=== PATIENT | female | born 1995 | race African-American/Black ===

== ENCOUNTER → 2018-01-30 | Outpatient (CLI) | payer BC, MEDICAID ==
[~2018-01-30] MED LIST: PREN-96 PO
[2018-01-30 11:31] LABS: Basophils # (auto) 0 uL; Basophils % (auto) 0.3 % (0.0-2.0); Eosinophils # (auto) 0 uL; Eosinophils % (auto) 0.3 % (0.0-7.0); Hemoglobin 12.8 g/dL (12.2-16.2); Lymphocytes # (auto) 1.3 uL; Mean Corpuscular Hemoglobin 29.9 pg (28.0-32.0); Mean Corpuscular Hgb Conc. 33.5 g/dL (32.0-36.0); Mean Corpuscular Volume 89.3 fL (80.0-100.0); Monocytes # (auto) 0.2 uL; Monocytes % (auto) 3.4 % (0.0-12.0); Neutrophils # (auto) 5.2 uL; Nucleated Red Blood Cells % 0.1 %; Platelet Count (auto) 281 10^3/uL (140-450); Red Blood Cells 4.26 10^6/uL (4.0-5.20); Red Cell Distribution Width 14.3 % (11.8-14.3); White Blood Cell 6.7 10^3/uL (4.4-10.8)
[2018-01-30 12:41] LABS: Alcohol, Urine < 3.0 mg/dL (0-5); Amphetamine Screen, Urine NEGATIVE (NEGATIVE); Barbiturate Scree,Urine NEGATIVE (NEGATIVE); Benzodiazephine Screen, Urine NEGATIVE (NEGATIVE); Cannabinoid Screen, Urine NEGATIVE (NEGATIVE); Cocaine Screen, Urine NEGATIVE (NEGATIVE); Opiate Scree,Urine NEGATIVE (NEGATIVE); Phencyclidine Screen, Urine NEGATIVE (NEGATIVE)
[2018-01-31 05:06] LABS: RPR Non Reactive (Non Reactive)
== END | disposition home or self-care (01) ==
LOC: LAB 10:36
PROVIDERS: ATTEND Obstetrics & Gynecology
DX: Z34.81 Encounter for supervision of other normal pregnancy, first trimester (principal); Z3A.01 Less than 8 weeks gestation of pregnancy; Z20.2 Contact with and (suspected) exposure to infections with a predominantly sexual mode of transmission
CPT/HCPCS: 36415; 80307; 83036; 84144; 84702; 85025; 86592; 86703; 86762; 86850; 86900; 86901; 87086; 87088; 87186; 87340

== ENCOUNTER → 2018-04-14 | Outpatient (CLI) | payer BC, MEDICAID ==
[2018-04-14 07:54] LABS: Basophils # (auto) 0 uL; Basophils % (auto) 0.2 % (0.0-2.0); Eosinophils # (auto) 0 uL; Eosinophils % (auto) 0.4 % (0.0-7.0); Hematocrit 34.7 % (36.0-46.0); Hemoglobin 11.6 g/dL (12.2-16.2); Lymphocytes # (auto) 1.1 uL; Lymphocytes % (auto) 16.1 % (10.0-50.0); Mean Corpuscular Hemoglobin 29.9 pg (28.0-32.0); Mean Corpuscular Hgb Conc. 33.3 g/dL (32.0-36.0); Mean Corpuscular Volume 89.8 fL (80.0-100.0); Monocytes # (auto) 0.3 uL; Monocytes % (auto) 5.1 % (0.0-12.0); Neutrophils # (auto) 5.3 uL; Neutrophils % (auto) 78.2 % (37.0-80.0); Platelet Count (auto) 288 10^3/uL (140-450); Red Blood Cells 3.86 10^6/uL (4.0-5.20); Red Cell Distribution Width 12.9 % (11.8-14.3); White Blood Cell 6.7 10^3/uL (4.4-10.8)
[2018-04-15 06:06] LABS: RPR Non Reactive (Non Reactive)
== END | disposition home or self-care (01) ==
LOC: LAB 07:17
PROVIDERS: ATTEND Obstetrics & Gynecology
DX: O99.810 Abnormal glucose complicating pregnancy (principal); Z3A.15 15 weeks gestation of pregnancy
CPT/HCPCS: 36415; 82951; 83036; 85025; 86592

== ENCOUNTER → 2018-06-17 | Outpatient (CLI) | payer BC, MEDICAID ==
[2018-06-17 16:20] LABS: Basophils # (auto) 0 uL; Basophils % (auto) 0.2 % (0.0-2.0); Eosinophils # (auto) 0 uL; Eosinophils % (auto) 0.4 % (0.0-7.0); Hematocrit 34.9 % (36.0-46.0); Hemoglobin 11.5 g/dL (12.2-16.2); Lymphocytes # (auto) 1.4 uL; Lymphocytes % (auto) 17.6 % (10.0-50.0); Mean Corpuscular Hgb Conc. 32.9 g/dL (32.0-36.0); Mean Corpuscular Volume 88.2 fL (80.0-100.0); Monocytes # (auto) 0.5 uL; Monocytes % (auto) 6.4 % (0.0-12.0); Neutrophils # (auto) 5.9 uL; Neutrophils % (auto) 75.4 % (37.0-80.0); Nucleated Red Blood Cells % 0.1 %; Platelet Count (auto) 254 10^3/uL (140-450); Red Blood Cells 3.95 10^6/uL (4.0-5.20); Red Cell Distribution Width 13.8 % (11.8-14.3); White Blood Cell 7.8 10^3/uL (4.4-10.8)
[2018-06-18 06:09] LABS: RPR Non Reactive (Non Reactive)
== END | disposition home or self-care (01) ==
LOC: LAB 15:53
PROVIDERS: ATTEND Obstetrics & Gynecology
DX: O23.593 Infection of other part of genital tract in pregnancy, third trimester (principal); Z3A.36 36 weeks gestation of pregnancy
CPT/HCPCS: 36415; 85025; 86592; 87081

== ENCOUNTER 2018-06-27 13:55 | Observation (INO) | payer BC, MEDICAID | END 2018-06-27 15:10 | disposition home or self-care (01) | DRG 833 | LOC: LDRP 13:55 | PROVIDERS: ADMIT Obstetrics & Gynecology; ATTEND Obstetrics & Gynecology | DX: O62.9 Abnormality of forces of labor, unspecified (principal); O26.893 Other specified pregnancy related conditions, third trimester; R11.0 Nausea; Z3A.37 37 weeks gestation of pregnancy | CPT/HCPCS: 59025; 81002; G0378 ==

== ENCOUNTER 2018-06-29 20:50 | Observation (INO) | payer BC, MEDICAID | END 2018-06-29 21:55 | disposition home or self-care (01) | DRG 833 | LOC: LDRP 20:50 | PROVIDERS: ADMIT Obstetrics & Gynecology; ATTEND Obstetrics & Gynecology | DX: O47.9 False labor, unspecified (principal); O26.893 Other specified pregnancy related conditions, third trimester; N89.8 Other specified noninflammatory disorders of vagina; Z3A.37 37 weeks gestation of pregnancy | CPT/HCPCS: 59025; 81002; G0378 ==

== ENCOUNTER 2018-07-01 08:25 | Inpatient (IN) | payer BC, MEDICAID ==
[~2018-07-01] VITALS: Ht 165.1 cm; Wt 97.5 kg
[2018-07-01 10:08] LABS: Basophils # (auto) 0 uL; Basophils % (auto) 0.3 % (0.0-2.0); Eosinophils # (auto) 0 uL; Eosinophils % (auto) 0.3 % (0.0-7.0); Hematocrit 32.9 % (36.0-46.0); Hemoglobin 10.8 g/dL (12.2-16.2); Lymphocytes # (auto) 1.3 uL; Mean Corpuscular Hemoglobin 28.8 pg (28.0-32.0); Mean Corpuscular Hgb Conc. 32.8 g/dL (32.0-36.0); Mean Corpuscular Volume 87.8 fL (80.0-100.0); Monocytes # (auto) 0.5 uL; Monocytes % (auto) 6.5 % (0.0-12.0); Neutrophils # (auto) 5.9 uL; Neutrophils % (auto) 75.9 % (37.0-80.0); Nucleated Red Blood Cells % 0.2 %; Platelet Count (auto) 222 10^3/uL (140-450); Red Blood Cells 3.75 10^6/uL (4.0-5.20); White Blood Cell 7.7 10^3/uL (4.4-10.8)
[2018-07-01 10:27] LABS: Albumin 2.2 g/dL (3.4-5.0); Anion Gap 4 (5-15); Blood Urea Nitrogen 7 mg/dL (7-18); Calcium 8.4 mg/dL (8.5-10.1); Carbon Dioxide 24 mmol/L (21-32); Chloride 107 mmol/L (98-107); Glucose 78 mg/dL (74-106); Potassium 4.3 mmol/L (3.5-5.1); Sodium 135 mmol/L (136-145)
[2018-07-01 10:31] LABS: Alanine Aminotransferase 16 U/L (13-56); Alkaline Phosphatase 159 U/L (45-117); Aspartate Aminotransferase 21 U/L (15-37); BUN/Creatinine Ratio 10.9; Bilirubin, Total 0.3 mg/dL (0.2-1.0); GFR African American > 60 mL/min; GFR Non-African American > 60 mL/min; Total Protein 6.4 g/dL (6.4-8.2); Uric Acid 4.1 mg/dL (2.6-6.0)
[2018-07-01 11:25] LABS: Amphetamine Screen, Urine NEGATIVE (NEGATIVE); Barbiturate Scree,Urine NEGATIVE (NEGATIVE); Benzodiazephine Screen, Urine NEGATIVE (NEGATIVE); Cannabinoid Screen, Urine NEGATIVE (NEGATIVE); Cocaine Screen, Urine NEGATIVE (NEGATIVE); Phencyclidine Screen, Urine NEGATIVE (NEGATIVE)
[2018-07-01 11:27] LABS: Alcohol, Urine < 3.0 mg/dL (0-5); Opiate Scree,Urine NEGATIVE (NEGATIVE)
[2018-07-01 11:44] LABS: Urine Bacteria NONE SEEN /hpf (None Seen); Urine Blood Negative /uL (Negative); Urine Hyaline Cast FEW /lpf (0 - 2); Urine Specific Gravity 1.006 (1.001-1.035); Urine WBC 10 /hpf (0 - 5)
[2018-07-01] MEDS ORDERED: LACTATED RINGER'S 1,000 ML IV SCH (12:55)
[2018-07-01] MEDS ORDERED: LACT. RINGERS/OXYTOCIN 20UNITS 1,000 ML IV SCH ×2 (12:55)
[2018-07-01] MEDS ORDERED: PHISODERM TOP SOLN 240ML BTL TOP PRN (13:00)
[2018-07-01] MEDS ORDERED: TERBUTALINE SULFATE 1 MG/ML 1ML VIAL SC ONE (13:00)
[2018-07-01] MEDS ORDERED: WITCH HAZEL-GLYCERIN PAD TOP PRN (13:00)
[2018-07-01] MEDS ORDERED: NALBUPHINE HCL 10 MG/1ml INJECTION IV PRN (13:00)
[2018-07-01] MEDS ORDERED: DERMOPLAST 60ML BOTTLE TOP PRN (13:00)
[2018-07-01 14:09] LABS: INR 0.86 (0.9-1.15); Partial Thromboplastin Time 28.9 sec (23.78-33.04); Prothrombin Time 9.3 sec (9.27-12.13)
[2018-07-01] MEDS ORDERED: PROMETHAZINE HCL 25 MG/ML 1ML ONE (15:18)
[2018-07-01] MEDS ORDERED: PROMETHAZINE HCL 25 MG/ML 1ML IV PRN (15:45)
[2018-07-01] MEDS ORDERED: LIDOCAINE 2%HCL (LOCAL ANESTH.) INJ 20ML MDV ONE (16:00)
[2018-07-01] MEDS ORDERED: ACETAMINOPHEN 325 MG TAB PO PRN (16:30)
[2018-07-01] MEDS ORDERED: IBUPROFEN 600 MG TAB PO PRN (16:30)
--- NOTE | 2018-07-01 18:30 | NUR ---
Ambulation: Patient OOB with standby assistance by RN. Patient ambulated to bathroom with steady gait. Patient able to void without difficulty. Pericare teaching provided with returned demonstration by patient. Clean gown provided and bed linen changed. Patient ambulated back to bed with steady gait and no distress noted.
[2018-07-01 23:00] VITALS: BP 108/58
[2018-07-02 03:16] VITALS: BP 120/63
[2018-07-02 05:05] LABS: RPR Non Reactive (Non Reactive)
[2018-07-02 07:00] VITALS: BP 118/71
[2018-07-02 11:04] VITALS: BP 123/87
[2018-07-02 15:27] VITALS: BP 114/68
--- NOTE | 2018-07-02 17:27 | NUR ---
Discharge: Discharge instructions given to mother of baby as ordered. Copies of and hearing screening, along with vaccination record given to mother. Mother encouraged to follow up with Director Of Industrial Relations of choice and to give envelope with infants information to varnishing machine operator at 1st office visit. All questions and concerns addressed. Mother of baby verbalized understanding and agreed to comply. Mother of baby encouraged to prepare for departure and notify RN ready to leave room for ID band removal/verification and car seat check.
--- NOTE | 2018-07-02 17:28 | NUR ---
Discharge: Discharge instructions given as ordered. Pt encouraged to follow up with INSECT CONTROL INSPECTOR as instructed. All questions and concerns addressed. Patient verbalized understanding. Medication reconciliation completed and copy given to patient. All required/requested vaccines given and copies of vaccinations given to patient. Patient encouraged to prepare to depart unit.
--- NOTE | 2018-07-02 17:35 | NUR ---
Discharge: Patient taken to vehicle via wheelchair with all personal belongings, accompanied by staff and family member. No distress noted at time of departure, no adverse changes in status since initial assessment.
== END 2018-07-02 17:35 | disposition home or self-care (01) | DRG 807 ==
LOC: LDRP 08:25 → OBSVTOIN 12:00
PROVIDERS: ADMIT Obstetrics & Gynecology; ATTEND Obstetrics & Gynecology
PROC: 10E0XZZ Delivery of Products of Conception, External Approach (ICD-10-PCS; principal; 2018-07-01)
PROC: 0HQ9XZZ Repair Perineum Skin, External Approach (ICD-10-PCS; 2018-07-01)
PROC: 10907ZC Drainage of Amniotic Fluid, Therapeutic from Products of Conception, Via Natural or Artificial Opening (ICD-10-PCS; 2018-07-01)
PROC: 0UQMXZZ Repair Vulva, External Approach (ICD-10-PCS; 2018-07-01)
DX: O70.0 First degree perineal laceration during delivery (principal); Z37.0 Single live birth; O71.82 Other specified trauma to perineum and vulva; Z3A.39 39 weeks gestation of pregnancy
CPT/HCPCS: 36415; 59025; 59409; 76818; 80053; 80307; 81001; 81002; 84550; 85025; 85610; 85730; 86592; 86850; 86900; 86901; 96365; 96366; G0378; J2590

== ENCOUNTER 2022-11-07 20:38 | Emergency (ER) | payer BC, MEDICAID ==
[~2022-11-07] VITALS: Ht 165.1 cm; Wt 74.1 kg
[2022-11-07] MEDS ORDERED: CLINDAMYCIN 900MG IV 50 ML IV ONE (21:00)
[2022-11-07] MEDS ORDERED: ACETAMINOPHEN 325 MG TAB PO ONE (21:00)
[2022-11-07] MEDS ORDERED: DexAMETHasone SOD PHOS 10MG/1ML VIAL INJ IV ONE (21:00)
[2022-11-07] MEDS ORDERED: ONDANSETRON HCL 4 MG/2 ML VIAL IV ONE (21:00)
[2022-11-07] MEDS ORDERED: LIDOCAINE VISCOUS 2% 15ML UD PO ONE (21:00)
[2022-11-07] MEDS ORDERED: KETOROLAC TROMETH 30 MG/ML 1ML VIAL IV ONE (21:00)
[2022-11-07] MEDS ORDERED: SODIUM CHLORIDE 0.9% 1,000 ML IV ONE (21:00)
[2022-11-07] MEDS ORDERED: CLINDAMYCIN HCL 150 MG CAP PO ONE (21:15)
[2022-11-07] MEDS ORDERED: PIPERACILLIN-TAZOB 3.375GM 100 ML IV ONE (21:15)
[2022-11-07] MEDS ORDERED: PRED20TA2 PO (21:29)
[2022-11-07] MEDS ORDERED: CLIN300C70 PO (21:29)
[2022-11-07] MEDS ORDERED: IBU600T PO (21:29)
[2022-11-07] MEDS ORDERED: LIDO2SOL18 MT (21:29)
[2022-11-07 23:30] VITALS: BP 126/81
== END 2022-11-07 23:33 | disposition home or self-care (01) ==
LOC: ER 20:44
DX: J03.90 Acute tonsillitis, unspecified (principal)
CPT/HCPCS: 96365; 96375; 99284; J1100; J1885; J2405; J2543; J7030

== ENCOUNTER 2023-11-30 15:02 | Emergency (ER) | payer MEDICAID ==
[~2023-11-30] VITALS: Ht 165.1 cm; Wt 79.4 kg
[~2023-11-30 15:02] MED LIST changes: +CLIN1CAP70 PO; +IBU600T PO; +LIDO2SOL18 MT; +PRED20TA2 PO
[2023-11-30 16:14] VITALS: BP 150/106; PULSE 111; RESP 16; TEMP 98.8; O2SAT 98
[2023-11-30] MEDS ORDERED: CLIN1CAP70 PO (16:22)
[2023-11-30] MEDS ORDERED: MUPI2OIN2 EX (16:22)
[2023-11-30] MEDS: DexAMETHasone SOD PHOS 10MG/1ML VIAL INJ IM ONE (16:46)
[2023-11-30] MEDS: CLINDAMYCIN HCL 150 MG CAP PO ONE (16:46)
[2023-11-30] MEDS: diphenhdrAMINE HCL 25 MG CAP PO ONE (16:46)
[2023-11-30] MEDS: ONDANSETRON ODT 4 MG TAB PO ONE (16:46)
[2023-11-30] MEDS: TETANUS-DIPTH-ACEL PERTUSSIS 0.5ML SYR Tdap IM ONE (16:47)
== END 2023-11-30 16:58 | disposition home or self-care (01) ==
LOC: ER 15:02
DX: S50.861A Insect bite (nonvenomous) of right forearm, initial encounter (principal); S90.861A Insect bite (nonvenomous), right foot, initial encounter; L03.113 Cellulitis of right upper limb; L03.115 Cellulitis of right lower limb; L08.89 Other specified local infections of the skin and subcutaneous tissue; R03.0 Elevated blood-pressure reading, without diagnosis of hypertension; Z79.899 Other long term (current) drug therapy; W57.XXXA Bitten or stung by nonvenomous insect and other nonvenomous arthropods, initial encounter; Y93.89 Activity, other specified; Y92.59 Other trade areas as the place of occurrence of the external cause; Y99.8 Other external cause status
CPT/HCPCS: 90471; 90715; 96372; 99284; J1100; Q0162

== ENCOUNTER 2024-05-03 13:50 | Emergency (ER) | payer BC, MEDICAID ==
[~2024-05-03] VITALS: Ht 165.1 cm; Wt 81.4 kg
[~2024-05-03 13:50] MED LIST changes: +MUPI2OIN2 EX
--- NOTE | 2024-05-03 16:31 | ED.PDOC ---
Psychiatric HPI Comments 28-year-old female with a history of bipolar disorder who admits she is nonadherent to her Zoloft presents for thoughts of hurting herself. Reports she blackout yesterday while she was drinking and sustained an abrasion to the left palm. Requesting help Denies benzodiazepines Denies thyroid disorders Denies HI/AH Chief Complaint: Suicidal Time Seen by MD: 15:53 Reviewed Notes: Nurses Notes, Medications, Allergies Information Source: Patient Mode of Arrival: Ambulatory Past Medical History PAST MEDICAL HISTORY: Denies Surgical History: Denies all surgeries PROGRAMMING ENGINEER History: No Pertinent PROGRAMMING ENGINEER History Family History Family History: Reviewed,noncontributory to illness Social History Smoker: Non-Smoker Alcohol: Rarely Drugs: Denies Drug Use All Other Systems: Reviewed and Negative (Per HPI) Physical Exam General Appearance: No Apparent Distress, Normal HEENT: Normal ENT Inspection, Pharynx Normal, TMs Normal Neck: Full Range of Motion, Non-Tender, Normal, Normal Inspection Respiratory: Chest Non-Tender, Lungs Clear, No Accessory Muscle Use, No Resp iratory Distress, Normal Breath Sounds Cardiovascular: No Edema, No JVD, No Murmur, No Gallop, Normal Peripheral Pulses, Regular Rate/Rhythm Breast Exam: Deferred Gastrointestinal: No Organomegaly, Non Tender, No Pulsatile Mass, Normal Bowel Sounds, Soft Genitalia: Deferred Pelvic: Deferred Rectal: Deferred Extremities: No calf tenderness, Normal capillary refill, Normal inspection, Normal range of motion, Non-tender, No pedal edema Musculoskeletal : Apperance: Normal Neurologic: Alert, account auditor II-XII nml as Tested, No Motor Deficits, Normal Affect, Normal Mood, No Sensory Deficits Cerebellar Function: Normal Reflexes: Normal Skin: Dry, Normal Color, Warm Lymphatic: No Adenopathy Was a procedure done? Was a procedure done?: No Psych Differential Dx Psych. Differential Dx: Anxiety, Bipolar Disorder X-Ray, Labs, Meds, VS Vital Signs Date Time Temp Pulse Resp B/P (MAP) Pulse Ox O2 Delivery O2 Flow Rate FiO2 05/03/24 14:06 98.0 133 18 151/92 (111) 99 X-Ray, Labs, Meds, VS Comment Tele psych consulted patient will be placed in observation. Patient will be endorsed to Timo Fiore Time of 1ST Reevaluation: 16:30 Reevaluation 1ST: Improved Patient Education/Counseling: Diagnosis, Treatment Family Education/Counseling: Diagnosis, Treatment Departure 1 Departure Time of Disposition: 16:30 Impression: Primary Impression: Suicidal ideation Disposition: 09 ADMITTED INPATIENT Condition: Guarded Critical Care Note Critical Care Time?: No Stability Stability form required: No Heart Score Heart Score: Heart Score Response (Comments) Value History N/A 0 EKG N/A 0 Age N/A 0 Risk Factors N/A 0 Troponin N/A 0 Total 0 BRIAN MCBRIDE NP May 03, 2024 16:31
[2024-05-03 16:35] VITALS: PULSE 135; RESP 16; O2SAT 97
[2024-05-03 17:04] LABS: Basophils # (auto) 0 10 ^3/uL (0-0.2); Basophils % (auto) 0.4 % (0.0-2.0); Eosinophils # (auto) 0 10 ^3/uL (0-0.8); Eosinophils % (auto) 0.3 % (0.0-7.0); Hematocrit 43.1 % (36.0-46.0); Hemoglobin 14.5 g/dL (12.2-16.2); Lymphocytes % (auto) 20.2 % (10.0-50.0); Mean Corpuscular Hemoglobin 30.5 pg (28.0-32.0); Mean Corpuscular Hgb Conc. 33.7 g/dL (32.0-36.0); Mean Corpuscular Volume 90.7 fL (80.0-100.0); Monocytes # (auto) 0.5 10 ^3/uL (0-1.3); Monocytes % (auto) 4.9 % (0.0-12.0); Neutrophils # (auto) 7.2 10 ^3/uL (1.6-8.6); Neutrophils % (auto) 74.2 % (37.0-80.0); Platelet Count (auto) 391 10^3/uL (140-450); Red Blood Cells 4.75 10^6/uL (4.0-5.20); Red Cell Distribution Width 13.9 % (11.8-14.3); White Blood Cell 9.6 10^3/uL (4.4-10.8)
[2024-05-03 17:13] LABS: Chloride 107 mmol/L (98-107); Potassium 4.3 mmol/L (3.5-5.1); Sodium 141 mmol/L (136-145)
[2024-05-03 17:14] LABS: Anion Gap 8 (5-15); Carbon Dioxide 26 mmol/L (20-31)
[2024-05-03 17:15] LABS: Calcium 9.7 mg/dL (8.7-10.4)
[2024-05-03 17:19] LABS: Blood Urea Nitrogen 8 mg/dL (9-23); Glucose 90 mg/dL (74-106)
[2024-05-03 17:20] LABS: Amphetamine Screen, Urine Neg (NEGATIVE); Barbiturate Scree,Urine Neg (NEGATIVE); Benzodiazephine Screen, Urine Neg (NEGATIVE); Cannabinoid Screen, Urine Pos (NEGATIVE); Cocaine Screen, Urine Neg (NEGATIVE); Opiate Scree,Urine Neg (NEGATIVE); Phencyclidine Screen, Urine Neg (NEGATIVE)
--- NOTE | 2024-05-03 19:45 | ED.PDOC ---
History of Present Illness Chief Complaint: Suicidal Allergies: Coded Allergies: NO KNOWN ALLERGIES (Unverified , 02/26/15) Home Meds Active Scripts Mupirocin (Pseudomonas Fluores (Mupirocin) 2 % Oin, 1 APPLIC EX TID, #15 GM Prov:JESSICA MELTON Q SERVICE LOSS CONTROL CONSULTANT 11/30/23 Clindamycin Hcl (Clindamycin Hcl) 300 Mg Cap, 1 CAP PO QID for 10 Days, #40 CAP Prov:JESSICA MELTON Q SERVICE LOSS CONTROL CONSULTANT 11/30/23 Lidocaine Hcl (Lidocaine Viscous) 2 % Miriam, 15 ML MT Q8HR, #100 ML as Needed for sore throat Prov:JESSICA MELTON Q SERVICE LOSS CONTROL CONSULTANT 11/07/22 Ibuprofen Micronized (MOTRIN TABLET) 600 Mg Tb, 1 TAB PO TID PRN, #20 TAB start tomorrow with food Prov:JESSICA MELTON Q SERVICE LOSS CONTROL CONSULTANT 11/07/22 Prednisone (Prednisone) 20 Mg Tab, 20 MG PO BID for 6 Days, #14 MG start tomorrow with food Prov:JESSICA MELTON Q SERVICE LOSS CONTROL CONSULTANT 11/07/22 Clindamycin Hcl (Clindamycin Hcl) 300 Mg Cap, 1 CAP PO TID for 10 Days, #21 CAP Prov:JESSICA MELTON Q SERVICE LOSS CONTROL CONSULTANT 11/07/22 Reported Medications Vit W/ Ferrous Fumara ( One Daily) Daily Tab, 1 TAB PO DAILY 02/26/15 Mode of Arrival: Ambulatory Past Medical History PAST MEDICAL HISTORY: Denies Surgical History: Denies all surgeries MATERIAL WORKER History: No Pertinent MATERIAL WORKER History Family History Family History: Reviewed,noncontributory to illness Social History Smoker: Non-Smoker Alcohol: Rarely Drugs: Denies Drug Use X-Ray, Labs, Meds, VS Vital Signs Date Time Temp Pulse Resp B/P (MAP) Pulse Ox O2 Delivery O2 Flow Rate FiO2 05/03/24 16:35 98.0 135 16 160/108 (125) 97 98.0 05/03/24 16:35 135 16 97 Room Air* 0 21 05/03/24 14:06 98.0 133 18 151/92 (111) 99 Lab Test 05/03/24 16:44 05/03/24 16:40 Range/Units Urine Test Negative Negative Urine Opiates Screen Neg NEGATIVE Urine Fentanyl Screen Neg NEGATIVE Urine Barbiturates Screen Neg NEGATIVE Urine Phencyclidine Screen Neg NEGATIVE Urine Amphetamines Screen Neg NEGATIVE Urine Benzodiazepines Screen Neg NEGATIVE Urine Cocaine Screen Neg NEGATIVE Urine Cannabinoids Screen Pos NEGATIVE White Blood Count 9.6 4.4-10.8 10^3/uL Red Blood Count 4.75 4.0-5.20 10^6/uL Hemoglobin 14.5 12.2-16.2 g/dL Hematocrit 43.1 36.0-46.0 % Mean Corpuscular Volume 90.7 80.0-100.0 fL Mean Corpuscular Hemoglobin 30.5 28.0-32.0 pg Mean Corpuscular Hemoglobin Concent 33.7 32.0-36.0 g/dL Red Cell Distribution Width 13.9 11.8-14.3 % Platelet Count 391 140-450 10^3/uL Mean Platelet Volume 7.4 6.9-10.8 fL Neutrophils (%) (Auto) 74.2 37.0-80.0 % Lymphocytes (%) (Auto) 20.2 10.0-50.0 % Monocytes (%) (Auto) 4.9 0.0-12.0 % Eosinophils (%) (Auto) 0.3 0.0-7.0 % Basophils (%) (Auto) 0.4 0.0-2.0 % Neutrophils # (Auto) 7.2 1.6-8.6 10 ^3/uL Lymphocytes # (Auto) 2.0 0.4-5.4 10 ^3/uL Monocytes # (Auto) 0.5 0-1.3 10 ^3/uL Eosinophils # (Auto) 0 0-0.8 10 ^3/uL Basophils # (Auto) 0 0-0.2 10 ^3/uL Nucleated Red Blood Cells 0.0 % Sodium Level 141 136-145 mmol/L Potassium Level 4.3 3.5-5.1 mmol/L Chloride Level 107 98-107 mmol/L Carbon Dioxide Level 26 20-31 mmol/L Anion Gap 8 5-15 Blood Urea Nitrogen 8 L 9-23 mg/dL Creatinine 1.00 0.550-1.02 mg/dL Glomerular Filtration Rate Calc 78 >90 mL/min BUN/Creatinine Ratio 8.0 L 10.0-20.0 Serum Glucose 90 74-106 mg/dL Calcium Level 9.7 8.7-10.4 mg/dL patient medically cleared Time of 1ST Reevaluation: 16:30 Reevaluation 1ST: Improved Departure 1 Departure Time of Disposition: 16:30 Impression: Primary Impression: Suicidal ideation Disposition: ADMITTED INPATIENT Condition: Guarded I personally scribed for AMELIA TAN MD ([email or web address]) on 05/03/24 at 19:45. Electronically submitted by Quinn Thomas [email or web address]). I personally scribed for AMELIA TAN MD ([email or web address]) on 05/03/24 at 19:48. Electronically submitted by Quinn Thomas [email or web address]). AMELIA TAN MD May 03, 2024 19:45
[2024-05-03 20:44] LABS: Acetaminophen < 2.0 UG/ML (10.0-20.0)
[2024-05-03 21:18] LABS: Salicylate < 3.0 mg/dL (-30)
[2024-05-03 23:15] VITALS: BP 141/93; PULSE 89; TEMP 98.8; O2SAT 99
--- NOTE | 2024-05-04 00:49 | DVHINCON2 ---
Date of Service if different f: May 04, 2024 Time of Service: 00:29 Consultation ([facility]) Consulting Physician: TAMERA BIRCH MD Labs Laboratory Tests Test 05/03/24 16:40 05/03/24 16:44 White Blood Count 9.6 10^3/uL (4.4-10.8) Red Blood Count 4.75 10^6/uL (4.0-5.20) Hemoglobin 14.5 g/dL (12.2-16.2) Hematocrit 43.1 % (36.0-46.0) Mean Corpuscular Volume 90.7 fL (80.0-100.0) Mean Corpuscular Hemoglobin 30.5 pg (28.0-32.0) Mean Corpuscular Hemoglobin Concent 33.7 g/dL (32.0-36.0) Red Cell Distribution Width 13.9 % (11.8-14.3) Platelet Count 391 10^3/uL (140-450) Mean Platelet Volume 7.4 fL (6.9-10.8) Neutrophils (%) (Auto) 74.2 % (37.0-80.0) Lymphocytes (%) (Auto) 20.2 % (10.0-50.0) Monocytes (%) (Auto) 4.9 % (0.0-12.0) Eosinophils (%) (Auto) 0.3 % (0.0-7.0) Basophils (%) (Auto) 0.4 % (0.0-2.0) Neutrophils # (Auto) 7.2 10 ^3/uL (1.6-8.6) Lymphocytes # (Auto) 2.0 10 ^3/uL (0.4-5.4) Monocytes # (Auto) 0.5 10 ^3/uL (0-1.3) Eosinophils # (Auto) 0 10 ^3/uL (0-0.8) Basophils # (Auto) 0 10 ^3/uL (0-0.2) Nucleated Red Blood Cells 0.0 % Sodium Level 141 mmol/L (136-145) Potassium Level 4.3 mmol/L (3.5-5.1) Chloride Level 107 mmol/L (98-107) Carbon Dioxide Level 26 mmol/L (20-31) Anion Gap 8 (5-15) Blood Urea Nitrogen 8 mg/dL (9-23) Creatinine 1.00 mg/dL (0.550-1.02) Glomerular Filtration Rate Calc 78 mL/min (>90) BUN/Creatinine Ratio 8.0 (10.0-20.0) Serum Glucose 90 mg/dL (74-106) Calcium Level 9.7 mg/dL (8.7-10.4) Salicylates Level < 3.0 mg/dL (-30) Acetaminophen Level < 2.0 UG/ML (10.0-20.0) Plasma/Serum Blood Alcohol 60.1 mg/dL (<10) Urine Test Negative (Negative) Urine Opiates Screen Neg (NEGATIVE) Urine Fentanyl Screen Neg (NEGATIVE) Urine Barbiturates Screen Neg (NEGATIVE) Urine Phencyclidine Screen Neg (NEGATIVE) Urine Amphetamines Screen Neg (NEGATIVE) Urine Benzodiazepines Screen Neg (NEGATIVE) Urine Cocaine Screen Neg (NEGATIVE) Urine Cannabinoids Screen Pos (NEGATIVE) Appearance: Stated age Psychomotor activity: WNL Behavioral: Cooperative Eye contact: Appropriate Speech: WNL Affect: Appropriate Mood: Depressed Thought processes: Linear/Goal-directed Thought content: WNL Suicidal ideations: Absent Homicidal ideations: Absent Orientation: Person, Place, Time, Situation Memory intact: Recent Intellect: Average Abstractability: WNL Concentration: Adequate Attention: Adequate Judgement: WNL Insight: Good Vitals Vital Signs Date Time Temp Pulse Resp B/P (MAP) Pulse Ox O2 Delivery O2 Flow Rate FiO2 05/03/24 23:15 98.8 89 141/93 (109) 99 98.8 05/03/24 16:35 16 05/03/24 16:35 Room Air* 0 21 Treatment plan discussed: With staff Medication adjusted: Yes Labs ordered: No Psychotherapy provided: No Type: Voluntary History of Present Illness Reason for Consult : psychiatric evaluation for suicidal ideation PER ED PHYSICIAN:28-year-old female with a history of bipolar disorder who admits she is nonadherent to her Zoloft presents for thoughts of hurting herself. Reports she blackout yesterday while she was drinking and sustained an abrasion to the left palm. PSYCHIATRIST HPI: The patient was seen and evaluated at [facility] ED via telepsychiatry platform. 28 yr old female reported she has been diagnosed with bipolar since high school and hasn't been on meds much. She was on zoloft in 2019. 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 and would like to get restarted on zoloft. She reported her mood has been down. She felt like she had a lot of anxiety and has been crying earlier today. She reported she has attended AA in the past and wants to do that now. She noted that she has been feeling down especially since working at the snf and feels like the zoloft helped her depression and anxiety in the past. She noted that she tends to get anxious at times as well. She denied having suicidal ideation plan or intent. He denied having homicidal ideation and auditory and visual hallucinations. Past Psychiatric History : Diagnosed with Bipolar disorder in HS. No hospitalizations. Suicide attempt in 2019 by cutting wrist. Past Medical History: none Current Medications: none NKDA Substance use: Has been drinking more often lately and blacked out yesterday. 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 Occasional MJ use. Denied other substance use. Social History : Lives in [place] with boyfriend and his three kids and her three kids. Works processing [employer] Diagnosis: UNSPECIFIED DEPRESSIVE DISORDER Formulation: This 28 yr old female appears to suffer from depression and is not currently suicidal. She may benefit from starting zoloft. Plan: 1. The patient is a low risk for self harm and may be managed as an outpatient. 2. Legal-voluntary 3. Medication: risks, benefits, adverse effects of the following were discussed and I recommend giving her a prescription for 30 days and two refills for Zoloft 50mg qam. 4. Follow up with outpatient mental health for medication management and therapy. Also recommend attending AA and refraining from alcohol use. 5. Case discussed with ED Physician, Dr Sawyer. Assessment/Diagnosis/Plan Reviewed: Labs, Medications, Previous Orders TAMERA BIRCH MD May 04, 2024 00:07
[2024-05-04] MEDS ORDERED: SERT50TA PO (10:11)
== END 2024-05-04 01:24 | disposition home or self-care (01) ==
LOC: ER 13:50
DX: R45.851 Suicidal ideations (principal); S60.512A Abrasion of left hand, initial encounter; F41.9 Anxiety disorder, unspecified; F31.9 Bipolar disorder, unspecified; Z91.51 Personal history of suicidal behavior; Z79.899 Other long term (current) drug therapy; X78.8XXA Intentional self-harm by other sharp object, initial encounter; Y93.89 Activity, other specified; Y92.89 Other specified places as the place of occurrence of the external cause; Y99.8 Other external cause status
CPT/HCPCS: 36415; 80048; 80307; 80320; 80329; 81025; 85025

== ENCOUNTER 2024-10-18 04:33 | Emergency (ER) | payer BC, MEDICAID ==
[~2024-10-18] VITALS: Ht 165.1 cm; Wt 75.9 kg
[~2024-10-18 04:33] MED LIST changes: +SERT50TA PO
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
[2024-10-18] MEDS: KETOROLAC TROMETH 60MG/2ML VIAL IM ONE (05:15)
[2024-10-18] MEDS ORDERED: IBUP-1456 PO (05:41)
[2024-10-18 05:45] VITALS: BP 138/98; PULSE 80; TEMP 98.6
[2024-10-18 05:58] VITALS: RESP 20; O2SAT 98
== END 2024-10-18 05:59 | disposition home or self-care (01) ==
LOC: ER 04:33
DX: S46.911A Strain of unspecified muscle, fascia and tendon at shoulder and upper arm level, right arm, initial encounter (principal); Z79.899 Other long term (current) drug therapy; X58.XXXA Exposure to other specified factors, initial encounter; Y93.89 Activity, other specified; Y92.89 Other specified places as the place of occurrence of the external cause; Y99.8 Other external cause status
CPT/HCPCS: 73030; 96372; 99283; J1885

== ENCOUNTER 2025-01-24 09:11 | Emergency (ER) | payer MEDICAID ==
[~2025-01-24] VITALS: Ht 162.6 cm; Wt 75.0 kg
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
--- NOTE | 2025-01-24 10:10 | DVH ---
CT HEAD WITHOUT CONTRAST INDICATION: Fall EXAM DATE: 01/24/2025 09:40 AM COMPARISON: None RADIATION DOSE: CTDIvol: 59 mGy, DLP: 1164 mGy*cm PROCEDURE: CT scans of the head were obtained from the vertex to the skull base. Sagittal and coronal reconstructions were provided. All CT scans at this medical facility are performed using dose modulation techniques as appropriate t o a performed exam including the following: Automated exposure control was utilized; adjustment of th e MA and/or KV according to patient size; and use of iterative reconstruction technique. FINDINGS: The brainshows normal morphology and umaña-white matter differentiation, without intracra nial hemorrhage, extra-axial fluid collection, mass effect or acute large vessel infarct. The ventric les are normal in size. The basal cisterns are patent. The skull and visible facial bones are intact. The paranasal sinuses, mastoid air cells and middle ear cavities are well-aerated. Mild left malar contusion. IMPRESSION: No acute intracranial abnormality.
[2025-01-24 10:22] LABS: Urine Protein, UAD Negative (Negative)
--- NOTE | 2025-01-24 10:25 | DVH ---
HISTORY: Fall, pain TECHNIQUE: Nonenhanced axial images through the facial bones with coronal and sagittal MPR. Radiation Dose Information: CT Dose: CTDI volume is 64 mGy. Dose-length product is 2461 mGy*cm COMPARISON: None FINDINGS: Mandible: Unremarkable Maxilla: Dental disease associated 1 of the posterior most left mandibular teeth. Zygomatic arches: Unremarkable Nasal bone: Mildly displaced fracture of the right base of the nasal bone. Orbits: Unremarkable Sinuses: Mild mucosal opacification of the right maxillary sinus. Facial swelling: None IMPRESSION: Mildly displaced fracture of the right base of the nasal bone.
[2025-01-24] MEDS: FLUORESCEIN SOD OPTH TEST STRIP LEFTEYE ONE (11:03)
[2025-01-24] MEDS: TETRACAINE HCL 0.5% OPTH(EYE) SOLN 4ML RIGHTEYE ONE (11:03)
[2025-01-24] MEDS: FLUORESCEIN SOD OPTH TEST STRIP RIGHTEYE ONE (11:03)
[2025-01-24] MEDS: TETRACAINE HCL 0.5% OPTH(EYE) SOLN 4ML LEFTEYE ONE (11:03)
[2025-01-24] MEDS ORDERED: AUG875T PO (11:24)
[2025-01-24] MEDS ORDERED: ERY05OO OP (11:24)
[2025-01-24 11:47] VITALS: BP 128/78; PULSE 62; RESP 16; TEMP 98.3; O2SAT 96
== END 2025-01-24 11:50 | disposition home or self-care (01) ==
LOC: ER 09:11
DX: S02.2XXA Fracture of nasal bones, initial encounter for closed fracture (principal); S06.5XAA Traumatic subdural hemorrhage with loss of consciousness status unknown, initial encounter; H20.9 Unspecified iridocyclitis; F10.10 Alcohol abuse, uncomplicated; H53.8 Other visual disturbances; Z79.899 Other long term (current) drug therapy; X58.XXXA Exposure to other specified factors, initial encounter; Y93.89 Activity, other specified; Y92.89 Other specified places as the place of occurrence of the external cause; Y99.8 Other external cause status; Y90.9 Presence of alcohol in blood, level not specified
CPT/HCPCS: 70450; 70486; 81001